=== PATIENT | male | born 1960 | race Caucasian/White ===

== ENCOUNTER 2024-01-27 12:04 | Inpatient (IN) | payer OTHER ==
--- NOTE | 2024-01-27 12:27 | ED ---
General Adult HPI - General Chief complaint: Syncope Stated complaint: Syncope Time Seen by Provider: 01/27/24 12:10 Source: patient, EMS, RN notes reviewed, old records reviewed Mode of arrival: EMS - History of Present Illness Initial comments: This is a 63-year-old male who presents to the emergency department stating he was outside trying to put his boat in today and he was sitting down he became lightheaded and passed out. Patient denies any chest pain difficulty breathing patient denies any abdominal pain patient denies any recent nausea vomiting or diarrhea. Patient states he has had a cough recently but no shortness of breath. Patient states he is unaware that he has a fever but when I took his temperature he had 100.5 orally. Patient denies any abdominal pain patient denies back pain patient [place] any other symptoms at this time. Patient states currently he feels considerably better. Patient states he has not changed any of his food or fluid intake recently or this morning. - Related Data Home Medications Medication Instructions Recorded Confirmed Atorvastatin [Lipitor] 20 mg PO DAILY 01/27/24 01/27/24 Losartan [Cozaar] 50 mg PO DAILY 01/27/24 01/27/24 Allergies Allergy/AdvReac Type Severity Reaction Status Date / Time No Known Allergies Allergy Verified 01/27/24 12:35 Review of Systems ROS Statement: Those systems with pertinent positive or pertinent negative responses have been documented in the HPI. ROS Other: All systems not noted in ROS Statement are negative. Past Medical History Past Medical History: Hypertension Additional Past Medical History / Comment(s): Neck cancer in 2014- chemo and radiation History of Any Multi-Drug Resistant Organisms: None Reported Past Surgical History: Orthopedic Surgery Additional Past Surgical History / Comment(s): Right hip replacement in 2020. Past Psychological History: No Psychological Hx Reported Smoking Status: Former smoker Past Alcohol Use History: Daily Past Drug Use History: None Reported General Exam - General Exam Comments Initial Comments: GENERAL: Patient is well-developed and well-nourished. Patient is nontoxic and well-hydr ated and is in mild distress. ENT: Neck is soft and supple. No significant lymphadenopathy is noted. Oropharynx is clear. Moist mucous membranes. Neck has full range of motion without eliciting any pain. EYES: The sclera were anicteric and conjunctiva were pink and moist. Extraocular movements were intact and pupils were equal round and reactive to light. Eyelids were unremarkable. PULMONARY: Unlabored respirations. Good breath sounds bilaterally. No audible rales rhonchi or wheezing was noted. CARDIOVASCULAR: There is a regular rate and rhythm without any murmurs gallops or rubs. ABDOMEN: Soft and nontender with normal bowel sounds. SKIN: Skin is clear with no lesions or rashes and otherwise unremarkable. NEUROLOGIC: Patient is alert and oriented x3. Cranial nerves II through XII are grossly intact. Motor and sensory are also intact. Normal speech, volume and content. Symmetrical smile. MUSCULOSKELETAL: Normal extremities with adequate strength and full range of motion. No lower extremity swelling or edema. No calf tenderness. LYMPHATICS: No significant lymphadenopathy is noted PSYCHIATRIC: Normal psychiatric evaluation. Course Vital Signs 01/27/24 01/27/24 01/27/24 12:06 12:35 13:35 Temperature 100.4 F H 99.5 F Pulse Rate 83 79 78 Pulse Rate [ Sales And Marketing Specialist ] Respiratory 17 17 18 Rate Blood Pressure 170/95 164/95 152/91 O2 Sat by Pulse 97 97 96 Oximetry 01/27/24 01/27/24 14:10 14:43 Temperature 98.5 F Pulse Rate 74 Pulse Rate [ 74 Sales And Marketing Specialist ] Respiratory 17 Rate Blood Pressure 141/86 O2 Sat by Pulse 98 Oximetry Medical Decision Making - Medical Decision Making EKG is interpreted by myself but EKG shows a sinus rhythm at 80 bpm parables 148 QRS 109 QT interval 361 QTc is 397. Patient's EKG shows no ST segment ovation or depression. Was pt. sent in by a medical professional or institution (, PA, UPPER EXTREMITY SURGEON, urgent care, hospital, or long-term...) When possible be specific @ -No Did you speak to anyone other than the patient for history (EMS, parent, family, police, friend...)? What history was obtained from this source @ -EMS gave us the history from the family. Did you review nursing and triage notes (agree or disagree)? Why? @ -I reviewed and agree with nursing and triage notes Were old charts reviewed (outside hosp., previous admission, EMS record, old EKG, old radiological studies, urgent care reports/EKG's, long-term records)? Report findings @ -No old charts were reviewed Differential Diagnosis (chest pain, altered mental status, abdominal pain women, abdominal pain men, vaginal bleeding, weakness, fever, dyspnea, syncope, h eadache, dizziness, GI bleed, back pain, seizure, CVA, palpatations, mental health, musculoskeletal)? @ -Differential Syncope: Valvular disease, hypertrophic cardiomyopathy, pulmonary embolism, tamponade, tachycardia, bradycardia, [place], hypovolemia, hemorrhage, dissection, anemia, intracranial hemorrhage, seizure, hypoglycemia, carbon monoxide poisoning, this is not meant to be an all-inclusive list. EKG interpreted by me (3pts min.). @ -As above X-rays interpreted by me (1pt min.). @ -Chest x-ray shows no acute normality CT interpreted by me (1pt min.). @ -None done U/S interpreted by me (1pt. min.). @ -None done What testing was considered but not performed or refused? (CT, X-rays, U/S, la bs)? Why? @ -None What meds were considered but not given or refused? Why? @ -None Did you discuss the management of the patient with other professionals (professionals i.e. , PA, UPPER EXTREMITY SURGEON, lab, RT, psych nurse, social media assistant, ancillary services manager therapy, teacher, lead security officer, major case detective)? Give summary @ -No Was smoking cessation discussed for >3mins.? @ -No Was critical care preformed (if so, how long)? @ -No Were there social determinants of health that impacted care today? How? (Homelessness, low income, unemployed, alcoholism, drug addiction, transportation, low edu. Level, literacy, decrease access to med. care, senior living, rehab)? @ -No Was there de-escalation of care discussed even if they declined (Discuss DNR or withdrawal of care, Hospice)? DNR status @ -No What co-morbidities impacted this encounter? (DM, HTN, Smoking, COPD, CAD, Cancer, CVA, ARF, Chemo, Hep., AIDS, mental health diagnosis, sleep apnea, morbid obesity)? @ -None Was patient admitted / discharged? Hospital course, mention meds given and route, prescriptions, significant lab abnormalities, going to OR and other pertinent info. @ -Patient had low-grade fever in the emergency department patient was given Motrin Tylenol for that. Patient was also given a liter half of fluid. I went back into the room after all lab work and x-rays were done and reevaluated the patient he was feeling back to his baseline he had no chest pain denied any headache at any time. was in the room at this time and I asked her how long the patient was unconscious for and then she started to tell me about how she is a nurse and when the patient lost consciousness she felt for a pulse and was unable to find one so she started CPR she did it for about 30 seconds gave the patient 2 breaths and continued for another 30 seconds and then the patient became awake. Patient according to her never had a pulse during that time and was not taking breaths. After realizing that this was the case at this point in time I decided that the patient needed to be admitted and I admitted to [facility] who I spoke with Dr. Lynch and I consulted cardiology Undiagnosed new problem with uncertain prognosis? @ -No Drug Therapy requiring intensive monitoring for toxicity (Heparin, Nitro, Insulin, Cardizem)? @ -No Were any procedures done? @ -No Diagnosis/symptom? @ -Syncope Acute, or Chronic, or Acute on Chronic? @ -Acute Uncomplicated (without systemic symptoms) or Complicated (systemic symptoms)? @ -Complicated Side effects of treatment? @ -No Exacerbation, Progression, or Severe Exacerbation? @ -No Poses a that to life or bodily function? How? (Chest pain, [place], [place], pneumonia, PE, COPD, DKA, ARF, appy, cholecystitis, CVA, Diverticulitis, Homicidal, Suicidal, threat to staff... and all critical care pts) @ -Yes because the patient had to have CPR and that could progress to . Diagnosis/symptom? @ -Viral syndrome Acute, or Chronic, or Acute on Chronic? @ -Default Uncomplicated (without systemic symptoms) or Complicated (systemic symptoms)? @ -Acute uncomplicated Side effects of treatment? @ -None Exacerbation, Progression, or Severe Exacerbation] @ -No Poses a threat to life or bodily function? @ -No - Lab Data Result diagrams: 01/27/24 12:42 01/27/24 13:21 Lab Results 01/27/24 01/27/24 01/27/24 Range/Units 12:42 12:42 12:42 WBC 10.0 (3.8-10.6) k/uL RBC 4.59 (4.30-5.90) m/uL Hgb 14.4 (13.0-17.5) gm/dL Hct 43.6 (39.0-53.0) % MCV 95.0 (80.0-100.0) fL MCH 31.4 (25.0-35.0) pg MCHC 33.1 (31.0-37.0) g/dL RDW 13.7 (11.5-15.5) % Plt Count 159 (150-450) k/uL MPV 8.9 Neutrophils % (Manual) 74 % Band Neuts % (Manual) 15 % Lymphocytes % (Manual) 4 % Monocytes % (Manual) 4 % Eosinophils % (Manual) 1 % Metamyelocytes % 2 % Myelocytes % 1 % Neutrophils # (Manual) 8.90 H (1.3-7.7) k/uL Lymphocytes # (Manual) 0.40 L (1.0-4.8) k/uL Monocytes # (Manual) 0.40 (0-1.0) k/uL Eosinophils # (Manual) 0.10 (0-0.7) k/uL Metamyelocytes # (Man) 0.20 H (0) k/uL Myelocytes # (Manual) 0.10 H (0) k/uL Nucleated RBCs 0 (0-0) /100 WBC Manual Slide Review Performed Toxic Vacuolation Present PT 10.5 (10.0-12.5) sec INR 0.9 (<1.2) APTT 22.6 (22.0-30.0) sec Sodium (137-145) mmol/L Potassium (3.5-5.1) mmol/L Chloride (98-107) mmol/L Carbon Dioxide (22-30) mmol/L Anion Gap mmol/L BUN (9-20) mg/dL Creatinine (0.66-1.25) mg/dL Est GFR (CKD-EPI)AfAm (>60 ml/min/1.73 sqM) Est GFR (CKD-EPI)NonAf (>60 ml/min/1.73 sqM) Glucose (74-99) mg/dL Calcium (8.4-10.2) mg/dL Magnesium (1.6-2.3) mg/dL Total Bilirubin (0.2-1.3) mg/dL AST (17-59) U/L ALT (4-49) U/L Alkaline Phosphatase (38-126) U/L Troponin I (0.000-0.034) ng/mL Total Protein (6.3-8.2) g/dL Albumin (3.5-5.0) g/dL Influenza Type A (PCR) Not Detected (Not Detectd) Influenza Type B (PCR) Not Detected (Not Detectd) RSV (PCR) Not Detected (Not Detectd) SARS-CoV-2 (PCR) Not Detected (Not Detectd) 01/27/24 01/27/24 Range/Units 13:21 13:21 WBC (3.8-10.6) k/uL RBC (4.30-5.90) m/uL Hgb (13.0-17.5) gm/dL Hct (39.0-53.0) % MCV (80.0-100.0) fL MCH (25.0-35.0) pg MCHC (31.0-37.0) g/dL RDW (11.5-15.5) % Plt Count (150-450) k/uL MPV Neutrophils % (Manual) % Band Neuts % (Manual) % Lymphocytes % (Manual) % Monocytes % (Manual) % Eosinophils % (Manual) % Metamyelocytes % % Myelocytes % % Neutrophils # (Manual) (1.3-7.7) k/uL Lymphocytes # (Manual) (1.0-4.8) k/uL Monocytes # (Manual) (0-1.0) k/uL Eosinophils # (Manual) (0-0.7) k/uL Metamyelocytes # (Man) (0) k/uL Myelocytes # (Manual) (0) k/uL Nucleated RBCs (0-0) /100 WBC Manual Slide Review Toxic Vacuolation PT (10.0-12.5) sec INR (<1.2) APTT (22.0-30.0) sec Sodium 135 L (137-145) mmol/L Potassium 4.2 (3.5-5.1) mmol/L Chloride 106 (98-107) mmol/L Carbon Dioxide 24 (22-30) mmol/L Anion Gap 5 mmol/L BUN 16 (9-20) mg/dL Creatinine 1.00 (0.66-1.25) mg/dL Est GFR (CKD-EPI)AfAm >90 (>60 ml/min/1.73 sqM) Est GFR (CKD-EPI)NonAf 79 (>60 ml/min/1.73 sqM) Glucose 93 (74-99) mg/dL Calcium 8.5 (8.4-10.2) mg/dL Magnesium 1.7 (1.6-2.3) mg/dL Total Bilirubin 0.9 (0.2-1.3) mg/dL AST 28 (17-59) U/L ALT 24 (4-49) U/L Alkaline Phosphatase 64 (38-126) U/L Troponin I <0.012 (0.000-0.034) ng/mL Total Protein 6.3 (6.3-8.2) g/dL Albumin 3.8 (3.5-5.0) g/dL Influenza Type A (PCR) (Not Detectd) Influenza Type B (PCR) (Not Detectd) RSV (PCR) (Not Detectd) SARS-CoV-2 (PCR) (Not Detectd) Disposition Clinical Impression: Syncope, Viral syndrome, Cardiopulmonary arrest with successful resuscitation Disposition: ADMITTED IP TO THIS HOSP Is patient prescribed a controlled substance at d/c from ED?: No Referrals: Nonstaff,Physician [Primary Care Provider] - 1-2 days Time of Disposition: 14:32
[2024-01-27] MEDS: ACETAMINOPHEN TAB 500 MG TAB PO STA (12:38)
[2024-01-27] MEDS: IBUPROFEN 600 MG TAB PO STA (12:38)
[2024-01-27] MEDS: SODIUM CHLORIDE 0.9% 1,000 ML IV ONE (12:40)
[2024-01-27] MEDS: SODIUM CHLORIDE 0.9% 500 ML 500 ML IV ONE (12:42)
[2024-01-27 13:11] LABS: INR 0.9 (<1.2); Partial Thromboplastin Time 22.6 sec (22.0-30.0); Prothrombin Time 10.5 sec (10.0-12.5)
--- NOTE | 2024-01-27 13:14 | XR ---
EXAMINATION TYPE: XR chest 2V DATE OF EXAM: 01/27/2024 12:57 PM CLINICAL INDICATION:Male, 63 years old with history of Chest Pain; [facility] COMPARISON: None TECHNIQUE: XR chest 2V Frontal and lateral views of the chest. FINDINGS: Lungs/Pleura: There is no evidence of pleural effusion, focal consolidation, or pneumothorax. Pulmonary vascularity: Unremarkable. Heart/mediastinum: Cardiomediastinal silhouette is unremarkable. Musculoskeletal: No acute osseous pathology. IMPRESSION: No acute cardiopulmonary disease/process.
[2024-01-27 13:16] LABS: HCT 43.6 % (39.0-53.0); HGB 14.4 gm/dL (13.0-17.5); MCH 31.4 pg (25.0-35.0); MCHC 33.1 g/dL (31.0-37.0); Mean Platelet Volume 8.9; Platelet Count 159 k/uL (150-450); RBC 4.59 m/uL (4.30-5.90); RDW 13.7 % (11.5-15.5)
[2024-01-27 13:51] LABS: Band Neutrophils % 15 %; Metamyelocytes % 2 %; Myelocytes % 1 %; Neutrophils % (M) 74 %; Nucleated Red Blood Cells 0 /100 WBC (0-0); Total Cells Counted 200
[2024-01-27 13:52] LABS: Toxic Vacuolation Present
[2024-01-27 14:16] LABS: ALT 24 U/L (4-49); AST 28 U/L (17-59); African American GFR (CKD) >90 (>60 ml/min/1.73 sqM); Albumin 3.8 g/dL (3.5-5.0); Alkaline Phosphatase 64 U/L (38-126); Anion Gap 5 mmol/L; Blood Urea Nitrogen 16 mg/dL (9-20); Calcium 8.5 mg/dL (8.4-10.2); Carbon Dioxide 24 mmol/L (22-30); Chloride 106 mmol/L (98-107); Glucose 93 mg/dL (74-99); Magnesium 1.7 mg/dL (1.6-2.3); Non-African American GFR(CKD) 79 (>60 ml/min/1.73 sqM); Potassium 4.2 mmol/L (3.5-5.1); Sodium 135 mmol/L (137-145); Total Bilirubin 0.9 mg/dL (0.2-1.3); Total Protein 6.3 g/dL (6.3-8.2)
[2024-01-27] MEDS ORDERED: NITROGLYCERIN SL TABS 0.4 MG TAB SUBLINGUAL PRN (15:01)
[2024-01-27] MEDS: HEPARIN SODIUM,PORCINE 5,000 UNIT/ML 1 ML VIAL SQ SCH (15:45)
[2024-01-27 16:07] LABS: Appearance,Urine Clear (Clear); Bilirubin,Urine Negative (Negative); Blood,Urine Negative (Negative); Color,Urine Colorless; Glucose,Urine (UA) Negative (Negative); Ketones,Urine 1+ (Negative); Leukocyte Esterase,Urine Negative (Negative); Nitrite,Urine Negative (Negative); PH, Urine 6.5 (5.0-8.0); Protein,Urine Negative (Negative); Urobilinogen,Urine <2.0 mg/dL (<2.0)
[2024-01-27] MEDS: NITROGLYCERIN OINT 1 INCH/GM PACKET TOPICAL SCH (17:06)
--- NOTE | 2024-01-27 17:14 | P.HPIM ---
History of Present Illness H&P Date: 01/27/24 Patient is a 63-year-old male with history of hypertension and dyslipidemia presenting after found unresponsive by and had few seconds of CPR with successful resuscitation. Claims that over the last 4 days or so he has been having cough, chest cold. He denies any fevers or chills. Today 15 minutes prior to passing out he had lightheadedness. His was with him, who is a nurse. He passed out, noted that he was pulseless and did 2 rounds of 30 compressions. He did get ROSC and was slightly confused after waking up. Currently he denies any chest pain, shortness of breath, abdominal pain, nausea, vomiting, urinary or bowel complaints. He denies any family history of arrhythmia or sudden cardiac arrest. He drinks 2 beers a day, denies any smoking or illicit drug use. In the ED, temperature was 100.4, pulse 83, respiratory rate 17, blood pressure 170/95, saturating at 97% on room air. WBC 10, hemoglobin 14.4, platelet 159, toxic loculations present, band neutrophils present, sodium 135, creatinine 1, respiratory viral panel negative. Chest x-ray independently interpreted, shows no opacities. EKG independently interpreted, shows normal sinus rhythm. Pat ient admitted for further workup. Cardiology consulted. Pertinent positives and negatives as discussed in HPI, a complete review of systems was performed and all other systems are negative. Patient seen and examined at bedside. Vital signs reviewed General: nontoxic, no distress, appears at stated age Derm: warm, dry Head: atraumatic, normocephalic, symmetric Eyes: EOMI, no lid lag, anicteric sclera, pupils equal round reactive to light ENT: Nose and ears atraumatic Neck: No thyromegaly, supple Mouth: no lip lesion, mucus membranes moist Cardiovascular: S1S2 reg, no murmur, no edema Lungs: clear to auscultation bilateral, no rhonchi, no rales, no wheeze, no accessory muscle use Abdominal: soft, nontender to palpation, no guarding, no appreciable organomegaly Ext: no gross muscle atrophy, muscle strength muscle strength 5 out of 5 in all 4 extremities, no contractures Neuro: CN II-XII grossly intact Psych: Alert, oriented, appropriate affect Assessment/Plan: Active: Status post out of hospital cardiac arrest with successful resuscitation Bandemia Suspected sepsis, febrile -Unclear source of infection -Chest x-ray did not show any opacities -Blood cultures and urine analysis with culture pending -Telemetry -Cardiology consulted -Repeat troponin pending -Echocardiogram pending Daily alcohol use -Monitor for withdrawal -Thiamine daily 100 mg Chronic: Hypertension and dyslipidemia The patient is admitted with an anticipated greater than 2 midnight stay as inpatient status for evaluation of out of hospital cardiac arrest. Surrogate decision-maker: CODE STATUS: Full code DVT prophylaxis: Subcu heparin Anticipated discharge date: Pending clinical course Anticipated discharge place: Pending clinical course A total of 55 minutes was spent on the care of this complex patient more than 50% of the time was spent in counseling and care coordination. Past Medical History Past Medical History: Hypertension Additional Past Medical History / Comment(s): Neck cancer in 2014- chemo and r adiation History of Any Multi-Drug Resistant Organisms: None Reported Past Surgical History: Orthopedic Surgery Additional Past Surgical History / Comment(s): Right hip replacement in 2020. Past Psychological History: No Psychological Hx Reported Smoking Status: Former smoker Past Alcohol Use History: Daily Past Drug Use History: None Reported Medications and Allergies Home Medications Medication Instructions Recorded Confirmed Type Atorvastatin [Lipitor] 20 mg PO DAILY 01/27/24 01/27/24 History Losartan [Cozaar] 50 mg PO DAILY 01/27/24 01/27/24 History Allergies Allergy/AdvReac Type Severity Reaction Status Date / Time No Known Allergies Allergy Verified 01/27/24 12:35 Physical Exam Vitals: Vital Signs Temp Pulse Pulse Resp BP Pulse Ox 01/27/24 15:07 78 16 115/68 99 01/27/24 14:43 74 01/27/24 14:10 98.5 F 74 17 141/86 98 01/27/24 13:35 99.5 F 78 18 152/91 96 01/27/24 12:35 79 17 164/95 97 01/27/24 12:06 100.4 F H 83 17 170/95 97 Intake and Output 01/27/24 01/27/24 01/27/24 06:59 14:59 22:59 Other: Weight 81.647 kg Results CBC & Chem 7: 01/27/24 12:42 01/27/24 13:21 Labs: Abnormal Lab Results - Last 24 Hours (Table) 01/27/24 01/27/24 Range/Units 12:42 13:21 Neutrophils # (Manual) 8.90 H (1.3-7.7) k/uL Lymphocytes # (Manual) 0.40 L (1.0-4.8) k/uL Metamyelocytes # (Man) 0.20 H (0) k/uL Myelocytes # (Manual) 0.10 H (0) k/uL Sodium 135 L (137-145) mmol/L
[2024-01-28 03:04] VITALS: TEMP 98.8
[2024-01-28] MEDS ORDERED: HEPARIN SODIUM,PORCINE (1 ML) 2,500 UNIT in SODIUM CHLORIDE 0.9% 250 ML IRRIGATION PRN (07:00)
[2024-01-28] MEDS ORDERED: HEPARIN SODIUM,PORCINE 10,000 UNIT in SODIUM CHLORIDE 0.9% 1,000 ML IRRIGATION PRN (07:00)
[2024-01-28] MEDS: ASPIRIN 325 MG TAB PO SCH (07:57)
[2024-01-28] MEDS: LOSARTAN 50 MG TAB PO SCH (07:57)
[2024-01-28] MEDS: THIAMINE 100 MG TAB PO SCH (07:57)
[2024-01-28] MEDS: ATORVASTATIN 20 MG TAB PO SCH (07:57)
[2024-01-28 10:36] LABS: Basophils % (A) 0 %; Eosinophils # (A) 0.1 k/uL (0-0.7); Eosinophils % (A) 1 %; HCT 40.7 % (39.0-53.0); Lymphocytes # (A) 0.7 k/uL (1.0-4.8); Lymphocytes % (A) 9 %; MCHC 31.9 g/dL (31.0-37.0); MCV 97.1 fL (80.0-100.0); Mean Platelet Volume 7.5; Monocytes # (A) 0.4 k/uL (0-1.0); Monocytes % (A) 5 %; Neutrophils # (A) 6.8 k/uL (1.3-7.7); Neutrophils % (A) 84 %; Platelet Count 171 k/uL (150-450); RBC 4.19 m/uL (4.30-5.90); RDW 13.5 % (11.5-15.5); WBC 8.1 k/uL (3.8-10.6)
[2024-01-28 10:54] LABS: ALT 20 U/L (4-49); AST 24 U/L (17-59); African American GFR (CKD) 80 (>60 ml/min/1.73 sqM); Albumin 3.5 g/dL (3.5-5.0); Alkaline Phosphatase 54 U/L (38-126); Anion Gap 3 mmol/L; Blood Urea Nitrogen 15 mg/dL (9-20); Calcium 8.5 mg/dL (8.4-10.2); Carbon Dioxide 28 mmol/L (22-30); Chloride 104 mmol/L (98-107); Glucose 102 mg/dL (74-99); Magnesium 1.8 mg/dL (1.6-2.3); Non-African American GFR(CKD) 69 (>60 ml/min/1.73 sqM); Sodium 135 mmol/L (137-145); Total Bilirubin 1.2 mg/dL (0.2-1.3)
[2024-01-28] MEDS ORDERED: SODIUM CHLORIDE 0.9% 1,000 ML in EMPTY BAG 1 BAG IV ONE (11:02)
[2024-01-28] MEDS ORDERED: ASPIRIN 325 MG TAB PO STA (11:02)
[2024-01-28] MEDS ORDERED: ALPRAZolam 0.25 MG TAB PO PRN (11:02)
[2024-01-28] MEDS ORDERED: NITROGLYCERIN SL TABS 0.4 MG TAB SUBLINGUAL PRN (11:02)
[2024-01-28] MEDS ORDERED: ATORVASTATIN 80 MG TAB PO STA (11:02)
[2024-01-28] MEDS ORDERED: ALPRAZolam 0.5 MG TAB PO PRN (11:02)
--- NOTE | 2024-01-28 11:53 | P.CRDCN ---
History of Present Illness Consult date: 01/28/24 Reason for Consult (text): Syncope, CPR successful History of present illness: History of present illness: This is a 63-year-old male does not follow with a trade clerk, lives in the [facility] with past medical history of hypertension. We have been asked to evaluate the patient for syncope and successful CPR. Patient states that he and his were getting ready to put the boat into the water and he was not feeling well kind of lightheaded and dizzy was sitting in the back of the station wagon and sitting at the time and then had a loss of consciousness. His caught him before he fell and she could not feel a pulse initially so she started CPR and completed 2 rounds of breath and chest compressions. Patient then gained consciousness. Patient denies having any lightheadedness or dizziness prior to the episode and no palpitations. He states he has had a cough for the last 4 to 5 days with no fever or chills. He said no new medications lately. He quit smoking 2013. No illicit drug use. He denies using any stimulants or caffeine. He drinks 2 beers per day. He denies any family history of coronary artery disease and no history of sudden in the family. Patient relates he had a stress test done somewhere between 12 and 20 years ago and developed some type of symptoms during the testing and was told it was anxiety. Discussed plan for cardiac catheterization followed by echocardiogram and event monitor for 30 days. Patient was initially agreeable to undergo cardiac catheterization but subsequently has refused and wishes to follow-up at [facility] in [place] for all of his care. Echocardiogram report has been obtained and report is pending. We will hold on event monitor. EKG sinus rhythm x [address] changes Chest x-ray: No acute findings WBC 8.1, hemoglobin 13. D-dimer 0.31. Sodium 135, potassium 4, creatinine 1.12. Troponin negative x 3. Magnesium 1.8. Urinalysis 1+ ketones. Home cardiac medications: Atorvastatin 20 mg daily and losartan 50 mg daily. Review Of Systems: At the time of my exam: CONSTITUTIONAL: Denies fever or chills. HEENT: Denies blurred vision, vision changes, or eye pain. Denies hemoptysis CARDIOVASCULAR: Denies chest pain. Denies orthopnea. Denies PND. Denies palpitations RESPIRATORY: Denies shortness of breath. GASTROINTESTINAL: Denies abdominal pain. Denies nausea or vomiting. HEMATOLOGIC: Denies bleeding disorders. GENITOURINARY: Denies any blood in urine. SKIN: Denies pruitis. Denies rash. Physical examination: Gen: This is a 63-year-old male in no acute distress VS: reviewed, blood pressure 145/83, heart rate 78, pulse ox 95% on room air. HEENT: Head is atraumatic, normocephalic. Pupils equal, round. Sclerae is anicteric. NECK: Supple. No JVD. LUNGS: Mild expiratory wheeze. No intercostal retractions. HEART: Regular rate and rhythm. No murmur. ABDOMEN: Soft No tenderness. EXTREMITIES: No pedal edema. No calf tenderness. NEUROLOGICAL: Patient is awake, alert and oriented x3. Assessment: Syncopal episode Pulseless episode requiring CPR Hypertension Plan: Resume patient's home cardiac medications Obtain 2-D echocardiogram and Doppler study to assess cardiac structure and function If echocardiogram is unremarkable, patient is cleared by cardiology for discharge to follow-up with his primary care for ischemic workup and event monitor Thank you kindly for this consultation. Nurse practitioner note has been reviewed, I agree with documented findings and plan of care. Patient was seen and examined. Past Medical History Past Medical History: Hypertension Additional Past Medical History / Comment(s): Neck cancer in 2014- chemo and radiation History of Any Multi-Drug Resistant Organisms: None Reported Past Surgical History: Orthopedic Surgery Additional Past Surgical History / Comment(s): Right hip replacement in 2020. Past Psychological History: No Psychological Hx Reported Smoking Status: Former smoker Past Alcohol Use History: Daily Past Drug Use History: None Reported Medications and Allergies Home Medications Medication Instructions Recorded Confirmed Type Atorvastatin [Lipitor] 20 mg PO DAILY 01/27/24 01/27/24 History Losartan [Cozaar] 50 mg PO DAILY 01/27/24 01/27/24 History Allergies Allergy/AdvReac Type Severity Reaction Status Date / Time No Known Allergies Allergy Verified 01/27/24 12:35 Physical Exam Vitals: Vital Signs Temp Pulse Pulse Resp BP Pulse Ox 01/28/24 07:59 84 20 142/83 98 01/28/24 05:30 88 18 157/91 99 01/28/24 02:49 88 16 160/91 95 01/27/24 23:00 98.8 F 01/27/24 21:35 82 18 139/84 97 01/27/24 18:13 99.0 F 73 16 127/80 95 01/27/24 17:05 75 17 128/73 98 01/27/24 16:05 98.7 F 71 17 99/60 96 01/27/24 15:07 78 16 115/68 99 01/27/24 14:43 74 01/27/24 14:10 98.5 F 74 17 141/86 98 01/27/24 13:35 99.5 F 78 18 152/91 96 01/27/24 12:35 79 17 164/95 97 01/27/24 12:06 100.4 F H 83 17 170/95 97 Results 01/28/24 10:10 01/28/24 10:10 Cardiac Enzymes 01/27/24 01/27/24 01/27/24 Range/Units 13:21 13:21 17:35 AST 28 (17-59) U/L Troponin I <0.012 0.013 (0.000-0.034) ng/mL 01/27/24 01/28/24 Range/Units 19:35 10:10 AST 24 (17-59) U/L Troponin I <0.012 (0.000-0.034) ng/mL Coagulation 01/27/24 Range/Units 12:42 PT 10.5 (10.0-12.5) sec APTT 22.6 (22.0-30.0) sec CBC 01/27/24 01/28/24 Range/Units 12:42 10:10 WBC 10.0 8.1 (3.8-10.6) k/uL RBC 4.59 4.19 L (4.30-5.90) m/uL Hgb 14.4 13.0 (13.0-17.5) gm/dL Hct 43.6 40.7 (39.0-53.0) % Plt Count 159 171 (150-450) k/uL Comprehensive Metabolic Panel 01/27/24 01/28/24 Range/Units 13:21 10:10 Sodium 135 L 135 L (137-145) mmol/L Potassium 4.2 4.0 (3.5-5.1) mmol/L Chloride 106 104 (98-107) mmol/L Carbon Dioxide 24 28 (22-30) mmol/L BUN 16 15 (9-20) mg/dL Creatinine 1.00 1.12 (0.66-1.25) mg/dL Glucose 93 102 H (74-99) mg/dL Calcium 8.5 8.5 (8.4-10.2) mg/dL AST 28 24 (17-59) U/L ALT 24 20 (4-49) U/L Alkaline Phosphatase 64 54 (38-126) U/L Total Protein 6.3 6.0 L (6.3-8.2) g/dL Albumin 3.8 3.5 (3.5-5.0) g/dL Current Medications Generic Name Dose Route Start Last Admin Trade Name Freq PRN Reason Stop Dose Admin Aspirin 325 mg 01/28/24 09:00 01/28/24 07:57 Aspirin 325 Mg Tab PO 325 mg DAILY PARAS Administration Atorvastatin Calcium 20 mg 01/28/24 09:00 01/28/24 07:57 Atorvastatin 20 Mg Tab PO 20 mg DAILY PARAS Administration Heparin Sodium (Porcine) 5,000 unit 01/27/24 16:00 01/28/24 07:57 Heparin Sodium,Porcine 5,000 Unit/Ml 1 Ml Vial SQ 5,000 unit Q8HR PARAS Administration Losartan Potassium 50 mg 01/28/24 09:00 01/28/24 07:57 Losartan 50 Mg Tab PO 50 mg DAILY PARAS Administration Nitroglycerin 0.4 mg 01/27/24 15:01 Nitroglycerin Sl Tabs 0.4 Mg Tab SUBLINGUAL Q5M PRN Chest Pain Nitroglycerin 1 inch 01/27/24 18:00 01/28/24 06:55 Nitroglycerin Oint 1 Inch/Gm Packet TOPICAL 1 inch Q6HR PARAS Administration Thiamine HCl 100 mg 01/28/24 09:00 01/28/24 07:57 Thiamine 100 Mg Tab PO 100 mg DAILY PARAS Administration 01/28/24 10:10 01/28/24 10:10
[2024-01-28 12:56] VITALS: BP 139/87; PULSE 77; RESP 16
--- NOTE | 2024-01-28 15:02 | P.PN ---
Subjective Progress Note Date: 01/28/24 Hospital Course: 63-year-old male with history of hypertension and dyslipidemia presenting after found unresponsive by and had few seconds of CPR with successful resuscitation. In the ED, temperature was 100.4, pulse 83, respiratory rate 17, blood pressure 170/95, saturating at 97% on room air. WBC 10, hemoglobin 14.4, platelet 159, toxic loculations present, band neutrophils present, sodium 135, creatinine 1, respiratory viral panel negative. Chest x-ray independently interpreted, shows no opacities. EKG independently interpreted, shows normal sinus rhythm. Patient admitted for further workup. Cardiology consulted. Echocardiogram pending. Subjective: Patient seen and examined at bedside. No acute events overnight. Pertinent positives and negatives as discussed above, a complete review of systems was performed and all other systems are negative. Vitals Signs Reviewed. General: Nontoxic, no distress, appears at stated age Derm: Warm, dry Head: Atraumatic, normocephalic, symmetric Eyes: EOMI, no lid lag, anicteric sclera Mouth: No lip lesion, mucus membranes moist Cardiovascular: S1S2 reg, no murmur Lungs: CTA bilateral, no rhonchi, no rales, no accessory muscle use Abdominal: Soft, nontender to palpation, no guarding, no appreciable organomegaly Ext: No gross muscle atrophy, no edema, no contractures Neuro: CN II-XI grossly intact, no focal neuro deficits Psych: Alert, oriented, appropriate affect Data Reviewed Today: Pertinent Labs: WBC 8.1, hemoglobin 13, creatinine 1.12, magnesium 1.8 Imaging: EKG independently interpreted from this morning, shows normal sinus rhythm. Assessment and Plan: Active: Status post out of hospital cardiac arrest with successful resuscitation Bandemia, resolved Fever on admission -No obvious source of infection -Blood cultures pending -Urinalysis negative -Telemetry -Discussed management with cardiology, pending echocardiogram, patient with like further testing including cardiac cath at [facility]. Daily alcohol use -Monitor for withdrawal -Thiamine daily 100 mg Chronic: Hypertension and dyslipidemia DVT ppx: SQ heparin Code status: Full code Anticipated discharge place: Home Anticipated discharge time: Today or tomorrow Objective - Vital Signs Vital signs: Vital Signs Temp 98.8 F 01/27/24 23:00 Pulse 77 01/28/24 12:32 Resp 16 01/28/24 12:32 BP 139/87 01/28/24 12:32 Pulse Ox 95 01/28/24 12:32 FiO2 Intake & Output 01/27/24 01/28/24 01/28/24 18:59 06:59 18:59 Weight 81.647 kg - Labs CBC & Chem 7: 01/28/24 10:10 01/28/24 10:10 Labs: Abnormal Lab Results - Last 24 Hours (Table) 01/27/24 01/28/24 01/28/24 Range/Units 15:18 10:10 10:10 RBC 4.19 L (4.30-5.90) m/uL Lymphocytes # 0.7 L (1.0-4.8) k/uL Sodium 135 L (137-145) mmol/L Glucose 102 H (74-99) mg/dL Total Protein 6.0 L (6.3-8.2) g/dL Urine Ketones 1+ H (Negative)
[2024-01-28 15:21] LABS: Chol/HDL Ratio 2.57 Ratio; LDL Cholesterol,Calculated 71.6 mg/dL (0.0-131.0); VLDL Calculation 12.02 mg/dL (5.00-40.00)
--- NOTE | 2024-01-29 07:34 | P.DS ---
Providers Date of admission: 01/27/24 15:04 Expected date of discharge: 01/29/24 Attending physician: Lionel Lynch MD Consults: 01/27/24 15:01 Consult Physician Urgent Consulting Provider: [facility] Consult Reason/Comments: Syncope, CPR successful Do you want consulting provider notified?: Yes Primary care physician: Physician Nonstaff Hospital Course: Patient left AMA prior to being seen. Patient Condition at Discharge: Undetermined Plan - Discharge Summary New Discharge Prescriptions: No Action Losartan [Cozaar] 50 mg PO DAILY Atorvastatin [Lipitor] 20 mg PO DAILY Discharge Medication List Atorvastatin [Lipitor] 20 mg PO DAILY 01/27/24 [History] Losartan [Cozaar] 50 mg PO DAILY 01/27/24 [History] Follow up Appointment(s)/Referral(s): Nonstaff,Physician [Primary Care Provider] - 1-2 days Discharge Disposition: LEFT AGAINST MEDICAL ADVICE
--- NOTE | 2024-01-29 13:18 | CA ---
Transthoracic Echo Report Name: Naveen Underwood Age: 63 Gender: M : 1960 Exam Date: 01/28/2024 10:39 Exam Location: [place] [facility] Ht (in): 72 Wt (lb): 180 Ordering Physician: Lionel Lynch MD Attending/Referring Phys: Accounts Payables Clerk Kylee Thomas RDCS Procedure CPT: Indications: Syncope Cardiac Hx: Technical Quality: Good Contrast 1: Total Dose (mL): Contrast 2: Total Dose (mL): MEASUREMENTS (Male / Female) Normal Values 2D ECHO LV Diastolic Diameter PLAX 5.4 cm 4.2 - 5.9 / 3.9 - 5.3 cm LV Systolic Diameter PLAX 4.0 cm IVS Diastolic Thickness 0.9 cm 0.6 - 1.0 / 0.6 - 0.9 cm LVPW Diastolic Thickness 0.9 cm 0.6 - 1.0 / 0.6 - 0.9 cm LV Relative Wall Thickness 0.3 RV Internal Dim ED PLAX 2.2 cm LA Systolic Diameter LX 4.0 cm 3.0 - 4.0 / 2.7 - 3.8 cm LV Diastolic Volume MOD BP 104.8 cm??? 67 - 155 / 56 - 104 cm??? LV Systolic Volume MOD BP 36.5 cm??? 22 - 58 / 19 - 49 cm??? LV Ejection Fraction MOD BP 65.2 % >= 55 % LV Cardiac Index MOD BP 2743.3 cm???/min???m??? LV Diastolic Volume MOD 4C 115.9 cm??? LV Systolic Volume MOD 4C 38.1 cm??? LV Ejection Fraction MOD 4C 67.1 % LV Cardiac Index MOD 4C 3124.0 cm???/min???m??? LV Diastolic Length 4C 8.3 cm LV Systolic Length 4C 6.4 cm LV Diastolic Volume MOD 2C 89.4 cm??? LV Systolic Volume MOD 2C 33.9 cm??? LV Ejection Fraction MOD 2C 62.0 % LV Cardiac Index MOD 2C 2227.0 cm???/min???m??? LV Diastolic Length 2C 7.8 cm LV Systolic Length 2C 6.9 cm LA Volume 48.2 cm??? 18 - 58 / 22 - 52 cm??? LA Volume Index 23.6 cm???/m??? 16 - 28 cm???/m??? M-MODE Aortic Root Diameter MM 3.6 cm LA Systolic Diameter MM 3.8 cm LA Ao Ratio MM 1.1 AV Cusp Separation MM 2.2 cm DOPPLER AV Peak Velocity 134.5 cm/s AV Peak Gradient 7.2 mmHg MV Area PHT 3.1 cm??? Mitral E Point Velocity 69.5 cm/s Mitral A Point Velocity 59.8 cm/s Mitral E to A Ratio 1.2 MV Deceleration Time 245.9 ms FINDINGS Left Ventricle Left ventricular ejection fraction is estimated at 60-65 %. Normal left ventricular systolic function with no obvious regional wall motion abnormalities. Normal left ventricular wall motion. Left ventricular cavity size normal. Right Ventricle Right ventricle not well visualized. Right ventricular systolic pressure within normal limits. Right Atrium Normal right atrial size. Left Atrium Normal left atrial size. Mitral Valve Structurally normal mitral valve. Mild mitral regurgitation. Aortic Valve No aortic valve stenosis or regurgitation. Trileaflet aortic valve. Tricuspid Valve Structurally normal tricuspid valve. Trace tricuspid regurgitation. Pulmonic Valve Structurally normal pulmonic valve. Trace pulmonic regurgitation. No pulmonic stenosis. Pericardium No pericardial or pleural effusion. Aorta Aorta at upper limits of normal. CONCLUSIONS Normal LV systolic function Previewed by: Dr. Jonathan Grey MD (Electronically Signed) Final Date: 29 Jan 2024 13:17
== END 2024-01-28 17:07 | disposition left against medical advice (07) | DRG 312 ==
LOC: EC 12:04 → 3SCARD 15:04
PROVIDERS: ADMIT Student in an Organized Health Care Education/Training Program; ATTEND Student in an Organized Health Care Education/Training Program
DX: R55 Syncope and collapse (principal); I46.9 Cardiac arrest, cause unspecified; B34.9 Viral infection, unspecified; I10 Essential (primary) hypertension; E78.5 Hyperlipidemia, unspecified; F41.9 Anxiety disorder, unspecified; D72.825 Bandemia; Z53.29 Procedure and treatment not carried out because of patient's decision for other reasons; Z79.899 Other long term (current) drug therapy; Z87.891 Personal history of nicotine dependence; Z96.641 Presence of right artificial hip joint; Z85.89 Personal history of malignant neoplasm of other organs and systems
CPT/HCPCS: 36415; 71046; 80053; 80061; 81003; 83735; 84484; 85025; 85379; 85610; 85730; 87040; 87636; 92950; 93005; 93306; 96360; 96361; 96372; 96374; 96376; 99285